=== PATIENT | male | born 1940 | race Caucasian/White ===

== ENCOUNTER → 2017-01-12 | Outpatient (CLI) | payer BC ==
[2014-08-21 09:12] VITALS: BP 142/82
[~2017-01-12] MED LIST: ASPI-482 PO; FINA5TAB PO; KORE100C PO; LEXAPRO5 MG PO; OMEG1CAP27 PO; OMEP10CA3 PO; TAMS0.4C97 PO
--- NOTE | 2017-01-12 10:16 | KCIC ---
Indication: Left shoulder pain. Time of exam 10:03 AM 3 views of the left shoulder were obtained. The glenohumeral and acromioclavicular alignment are normal. Acromiohumeral space is normal. No fracture or dislocation is identified. IMPRESSION: No acute bony abnormality is detected. Electronically signed by: Chris Bermudez MD (01/12/2017 10:12 AM) [id number]
== END | disposition home or self-care (01) ==
LOC: KCIC 09:55
PROVIDERS: ATTEND Nurse Practitioner Family
DX: M25.512 Pain in left shoulder (principal)
CPT/HCPCS: 73030

== ENCOUNTER → 2017-10-29 | Outpatient (CLI) | payer OTHER | END | disposition home or self-care (01) | LOC: RT 18:34 | DX: G47.33 Obstructive sleep apnea (adult) (pediatric) (principal) | CPT/HCPCS: 95810 ==

== ENCOUNTER → 2021-07-26 | Outpatient (CLI) | payer OTHER ==
[2014-08-21 09:12] VITALS: BP 142/82
[~2021-07-26] MED LIST changes: +GADOTERATE 7.5 MMOL/15ML VIAL. IVP ONE; -OMEP10CA3 PO; +OMEP10CA4 PO
--- NOTE | 2021-07-26 13:34 | RAD ---
MRI brain without and with contrast Contrast: Weakness, difficulty with balance when standing, neuropathy. Contrast: 15 mL Clariscan gadolinium intravenous contrast. COMPARISON: No priors FINDINGS: No acute ischemic infarction. There is no cytotoxic edema of the brain on the DWI/ADC seque nces. There is mild generalized brain atrophy with enlargement of the ventricles and cerebral sulci. The ventriculomegaly is somewhat disproportionate to the enlargement of the cerebral sulci and raises the possibility of superimposed normal pressure hydrocephalus. Small subcentimeter cavitary lesion w ith surrounding T2-weighted hyperintense gliosis of the right basal ganglia FLAIR image 16 most likel y a chronic lacunar ischemic infarct. There are a few scattered frontal and parietal lobe white matte r T2 weighted hyperintense lesions in a patient of this age most likely represent changes of chronic microvascular ischemic disease. Intracranial vascular flow voids are intact. No intracranial hemorrha ge, mass, hydrocephalus, extra-axial fluid collections. Intracranial vascular flow voids are intact. No pathologic intracranial enhancement or enhancing mass. Orbits and mastoids are unremarkable. IMPRESSION: 1. No acute abnormality. 2. Ventriculomegaly is present. This may be enlargement of the ventricles due to generalized brain at rophy which is present, versus sequela of normal pressure hydrocephalus. 3. Scattered frontal and parietal lobe white matter T2-weighted hyperintense lesions most likely repr esenting changes of chronic microvascular ischemic disease. 4. Small subcentimeter cavitary chronic lacunar ischemic infarct of the right basal ganglia. Electronically signed by: Dhruv Tse MD (07/26/2021 1:32 PM) [facility], [facility] CAMPUSREMEDIOS
== END ==
LOC: MRI 10:55
PROVIDERS: ATTEND Nurse Practitioner Family
DX: G93.89 Other specified disorders of brain (principal); I63.81 Other cerebral infarction due to occlusion or stenosis of small artery; G31.9 Degenerative disease of nervous system, unspecified; G62.9 Polyneuropathy, unspecified; R53.1 Weakness; R26.89 Other abnormalities of gait and mobility
CPT/HCPCS: 70553; A9575